=== PATIENT | male | born 1945 | race Two or more races ===

== ENCOUNTER 2023-02-08 23:21 | Inpatient (IN) | payer MEDICARE ==
[~2023-02-08] VITALS: Ht 170.2 cm; Wt 65.3 kg
[2023-02-09] VITALS (23 sets, daily range): BP systolic 97–147; BP diastolic 70–99; TEMP 98–98.7; O2SAT 98–100
[2023-02-09] MEDS ORDERED: ONDANSETRON HCL/PF 4 MG/2 ML VIAL IVP PRN (01:00)
[2023-02-09] MEDS ORDERED: MAG HYDROX/AL HYDROX/SIMETH 30 ML UDC PO PRN (01:00)
[2023-02-09] MEDS ORDERED: ACETAMINOPHEN 325 MG TABLET PO PRN ×2 (01:00→09:30)
[2023-02-09] MEDS ORDERED: MORPHINE SULFATE INJ 2 MG/ML DISP.SYRIN IV PRN (01:00)
[2023-02-09] MEDS ORDERED: Z GUARD REMEDY 4 OZ OINT TP PRN (01:00)
[2023-02-09] MEDS ORDERED: MAGNESIUM HYDROXIDE 30 ML UDC PO PRN (01:00)
[2023-02-09] MEDS ORDERED: ENOXAPARIN SODIUM 60 MG/0.6 ML DISP.SYRIN SQ ONE (03:30)
[2023-02-09 04:37] LABS: BASOPHILS % (AUTO) 0.2 % (0.0-2.0); EOSINOPHILS # (AUTO) 0.1 K/uL (0.0-0.7); EOSINOPHILS % (AUTO) 1.4 % (0.0-6.0); HEMATOCRIT 35 % (39-51); HEMOGLOBIN 11.4 g/dL (13.5-17.5); LYMPHOCYTES # (AUTO) 1.3 K/uL (0.8-4.8); LYMPHOCYTES % (AUTO) 16.9 % (20.0-44.0); MEAN CORPUSCULAR HEMOGLOBIN 28 PG (26.0-33.0); MEAN CORPUSCULAR HGB CONC 32 g/dl (31.0-36.0); MEAN CORPUSCULAR VOLUME 87 fL (80-96); MONOCYTES # (AUTO) 0.7 K/uL (0.1-1.30); MONOCYTES % (AUTO) 9.1 % (2.0-12.0); NEUTROPHILS # (AUTO) 5.6 K/uL (1.8-8.9); NEUTROPHILS % (AUTO) 72.4 % (43.0-81.0); PLATELET COUNT (AUTO) 191 K/uL (150-450); RED BLOOD CELL COUNT(AUTO) 4.05 MIL/uL (4.5-6.0); RED CELL DISTRIBUTION WIDTH 14.8 % (11.5-15.0); WHITE BLOOD COUNT (AUTO) 7.7 K/uL (4.3-11.0)
[2023-02-09 04:57] LABS: CALCIUM, SERUM 7.8 mg/dL (8.5-10.1); CARBON DIOXIDE 23 mmol/L (21-32); CHLORIDE 96 mmol/L (98-107); CREATININE 1.1 mg/dL (0.6-1.3); GLUCOSE 112 mg/dL (74-106); MAGNESIUM 1.8 mg/dL (1.8-2.4); PHOSPHORUS 3.9 mg/dL (2.5-4.9); POTASSIUM 3.9 mmol/L (3.5-5.1); SODIUM SERUM 129 mmol/L (136-145); UREA NITROGEN, BLOOD 26 mg/dL (7-18)
[2023-02-09] MEDS ORDERED: TRAZ-182 PO (08:12)
[2023-02-09] MEDS ORDERED: METO25TA4 PO (08:12)
[2023-02-09] MEDS ORDERED: CLOP75TA15 PO (08:12)
[2023-02-09] MEDS ORDERED: ASPI-1420 PO (08:12)
[2023-02-09] MEDS ORDERED: ERGO500093 PO (08:12)
[2023-02-09] MEDS ORDERED: SACU1TAB PO (08:12)
[2023-02-09] MEDS ORDERED: ACET-868 PO (08:12)
[2023-02-09] MEDS ORDERED: PANT20TA2 PO (08:12)
[2023-02-09] MEDS ORDERED: POLY17PO4 PO (08:12)
[2023-02-09] MEDS ORDERED: DORZ10DR11 EACHEYE (08:12)
[2023-02-09] MEDS: ENOXAPARIN SODIUM 60 MG/0.6 ML DISP.SYRIN SQ SCH ×3 (08:12→21:10)
[2023-02-09] MEDS ORDERED: SENN-261 PO (08:12)
[2023-02-09] MEDS ORDERED: ROSU20TA2 PO (08:12)
[2023-02-09] MEDS ORDERED: FUROSEMIDE 20 MG/2 ML VIAL IV SCH (09:00)
[2023-02-09] MEDS ORDERED: TRAZODONE 50 MG TABLET PO PRN (09:30)
[2023-02-09] MEDS ORDERED: SENNOSIDES 8.6 MG TABLET PO PRN (09:30)
[2023-02-09] MEDS: POTASSIUM CHLORIDE 20 MEQ TAB.PRT.SR PO SCH ×3 (10:11→12:48)
[2023-02-09] MEDS: FUROSEMIDE 40 MG/4 ML VIAL IV SCH ×3 (10:14→16:41)
[2023-02-09] MEDS: METOPROLOL SUCCINATE 25 MG TAB.SR.24H PO SCH (11:37)
[2023-02-09] MEDS: ASPIRIN EC 81 MG TABLET.DR PO SCH (11:38)
[2023-02-09] MEDS: CLOPIDOGREL BISULFATE 75 MG TABLET PO SCH (11:38)
[2023-02-09] MEDS: SACUBITRIL/VALSARTAN 1 EACH TABLET PO SCH (16:19)
[2023-02-09] MEDS: TIMOLOL 0.5% SOLN OPHTH 5 ML BOTTLE EACHEYE SCH (16:20)
[2023-02-09] MEDS: DORZOLAMIDE OPTH 2% 10 ML BOTTLE EACHEYE SCH (16:21)
[2023-02-09] MEDS: ATORVASTATIN 40 MG TABLET PO SCH (21:10)
[2023-02-10] VITALS (14 sets, daily range): BP systolic 98–140; BP diastolic 61–90; TEMP 97.9–98.4; O2SAT 96–100
[2023-02-10 04:20] LABS: BASOPHILS % (AUTO) 0.4 % (0.0-2.0); EOSINOPHILS # (AUTO) 0.2 K/uL (0.0-0.7); EOSINOPHILS % (AUTO) 3.4 % (0.0-6.0); HEMATOCRIT 35 % (39-51); HEMOGLOBIN 11.4 g/dL (13.5-17.5); LYMPHOCYTES # (AUTO) 1.1 K/uL (0.8-4.8); LYMPHOCYTES % (AUTO) 16.7 % (20.0-44.0); MEAN CORPUSCULAR HEMOGLOBIN 28 PG (26.0-33.0); MEAN CORPUSCULAR HGB CONC 33 g/dl (31.0-36.0); MEAN CORPUSCULAR VOLUME 87 fL (80-96); MONOCYTES # (AUTO) 0.8 K/uL (0.1-1.30); MONOCYTES % (AUTO) 11.4 % (2.0-12.0); NEUTROPHILS # (AUTO) 4.5 K/uL (1.8-8.9); NEUTROPHILS % (AUTO) 68.1 % (43.0-81.0); PLATELET COUNT (AUTO) 211 K/uL (150-450); RED BLOOD CELL COUNT(AUTO) 4.02 MIL/uL (4.5-6.0); RED CELL DISTRIBUTION WIDTH 14.6 % (11.5-15.0); WHITE BLOOD COUNT (AUTO) 6.6 K/uL (4.3-11.0)
[2023-02-10 04:28] LABS: CHOLESTEROL 124 mg/dL (<200); HDL CHOLESTEROL 48 mg/dL (40-60); LDL 66 mg/dL (0-99); TRIGLYCERIDES 75 mg/dL (30-150)
[2023-02-10 04:37] LABS: ALANINE AMINOTRANSFERASE 28 U/L (12-78); ALBUMIN 2.8 g/dL (3.4-5.0); ALKALINE PHOSPHATASE 68 U/L (46-116); ASPARTATE AMINOTRANSFERASE 56 U/L (15-37); CALCIUM, SERUM 8.5 mg/dL (8.5-10.1); CARBON DIOXIDE 23 mmol/L (21-32); CHLORIDE 98 mmol/L (98-107); CREATININE 1.1 mg/dL (0.6-1.3); GLUCOSE 95 mg/dL (74-106); MAGNESIUM 2.1 mg/dL (1.8-2.4); PHOSPHORUS 3.7 mg/dL (2.5-4.9); SODIUM SERUM 132 mmol/L (136-145); TOTAL PROTEIN, SERUM 6.3 g/dL (6.4-8.2); UREA NITROGEN, BLOOD 29 mg/dL (7-18)
[2023-02-10] MEDS: DORZOLAMIDE OPTH 2% 10 ML BOTTLE EACHEYE SCH ×2 (08:35→17:03)
[2023-02-10] MEDS: ASPIRIN EC 81 MG TABLET.DR PO SCH (08:35)
[2023-02-10] MEDS: TIMOLOL 0.5% SOLN OPHTH 5 ML BOTTLE EACHEYE SCH ×2 (08:35→17:04)
[2023-02-10] MEDS: CLOPIDOGREL BISULFATE 75 MG TABLET PO SCH (08:35)
[2023-02-10] MEDS: SACUBITRIL/VALSARTAN 1 EACH TABLET PO SCH ×2 (08:36→17:02)
[2023-02-10] MEDS: METOPROLOL SUCCINATE 25 MG TAB.SR.24H PO SCH (08:36)
[2023-02-10] MEDS: POTASSIUM CHLORIDE 20 MEQ TAB.PRT.SR PO SCH ×3 (09:37→12:17)
[2023-02-10] MEDS: FUROSEMIDE 40 MG/4 ML VIAL IV SCH ×3 (09:37→21:14)
[2023-02-10] MEDS: ENOXAPARIN SODIUM 60 MG/0.6 ML DISP.SYRIN SQ SCH (09:38)
[2023-02-10] MEDS: PANTOPRAZOLE 40 MG/PACK PACK PO SCH (10:33)
[2023-02-10] MEDS ORDERED: FUROSEMIDE 40 MG/4 ML VIAL ONE (21:11)
[2023-02-10] MEDS: ATORVASTATIN 40 MG TABLET PO SCH (21:14)
[2023-02-11] VITALS: BP 116/73; TEMP 97.7; O2SAT 95
[2023-02-11 04:00] VITALS: BP 119/83; TEMP 97.7; O2SAT 95
[2023-02-11 06:00] LABS: BASOPHILS % (AUTO) 0.4 % (0.0-2.0); EOSINOPHILS # (AUTO) 0.2 K/uL (0.0-0.7); EOSINOPHILS % (AUTO) 2.8 % (0.0-6.0); HEMATOCRIT 36 % (39-51); HEMOGLOBIN 11.9 g/dL (13.5-17.5); LYMPHOCYTES # (AUTO) 1.4 K/uL (0.8-4.8); LYMPHOCYTES % (AUTO) 19.5 % (20.0-44.0); MEAN CORPUSCULAR HEMOGLOBIN 29 PG (26.0-33.0); MEAN CORPUSCULAR HGB CONC 33 g/dl (31.0-36.0); MEAN CORPUSCULAR VOLUME 87 fL (80-96); MONOCYTES # (AUTO) 0.8 K/uL (0.1-1.30); MONOCYTES % (AUTO) 10.5 % (2.0-12.0); NEUTROPHILS # (AUTO) 4.8 K/uL (1.8-8.9); NEUTROPHILS % (AUTO) 66.8 % (43.0-81.0); PLATELET COUNT (AUTO) 238 K/uL (150-450); RED BLOOD CELL COUNT(AUTO) 4.14 MIL/uL (4.5-6.0); RED CELL DISTRIBUTION WIDTH 14.8 % (11.5-15.0); WHITE BLOOD COUNT (AUTO) 7.2 K/uL (4.3-11.0)
[2023-02-11 06:15] LABS: ALANINE AMINOTRANSFERASE 25 U/L (12-78); ALBUMIN 2.8 g/dL (3.4-5.0); ALKALINE PHOSPHATASE 70 U/L (46-116); ASPARTATE AMINOTRANSFERASE 33 U/L (15-37); BILIRUBIN,TOTAL 0.7 mg/dL (0.2-1.0); CALCIUM, SERUM 8.7 mg/dL (8.5-10.1); CARBON DIOXIDE 28 mmol/L (21-32); CHLORIDE 95 mmol/L (98-107); CREATININE 1.2 mg/dL (0.6-1.3); GLUCOSE 105 mg/dL (74-106); MAGNESIUM 1.8 mg/dL (1.8-2.4); PHOSPHORUS 4.2 mg/dL (2.5-4.9); POTASSIUM 3.8 mmol/L (3.5-5.1); SODIUM SERUM 133 mmol/L (136-145); TOTAL PROTEIN, SERUM 6.3 g/dL (6.4-8.2); UREA NITROGEN, BLOOD 32 mg/dL (7-18)
[2023-02-11 08:00] VITALS: BP 126/74; TEMP 97.7; O2SAT 100
[2023-02-11] MEDS: SACUBITRIL/VALSARTAN 1 EACH TABLET PO SCH ×2 (09:00→16:37)
[2023-02-11] MEDS ORDERED: SPIRONOLACTONE 25 MG TABLET PO SCH (09:00)
[2023-02-11] MEDS: DORZOLAMIDE OPTH 2% 10 ML BOTTLE EACHEYE SCH ×4 (09:00→16:45)
[2023-02-11] MEDS: TIMOLOL 0.5% SOLN OPHTH 5 ML BOTTLE EACHEYE SCH ×2 (09:01→16:37)
[2023-02-11] MEDS: PANTOPRAZOLE 40 MG/PACK PACK PO SCH (09:02)
[2023-02-11] MEDS: CLOPIDOGREL BISULFATE 75 MG TABLET PO SCH (09:02)
[2023-02-11] MEDS: METOPROLOL SUCCINATE 25 MG TAB.SR.24H PO SCH (09:02)
[2023-02-11] MEDS: ASPIRIN EC 81 MG TABLET.DR PO SCH (09:02)
[2023-02-11 16:00] VITALS: BP 126/72; TEMP 98.2; O2SAT 99
[2023-02-11 20:49] VITALS: BP 129/87; TEMP 97.3; O2SAT 99
[2023-02-11] MEDS: ATORVASTATIN 40 MG TABLET PO SCH (22:58)
== END 2023-02-12 00:15 | disposition short-term general hospital (02) | DRG 280 ==
LOC: ICU 23:57 → TELE 02-10 13:26
PROVIDERS: ADMIT Nurse Practitioner Acute Care
DX: I21.4 Non-ST elevation (NSTEMI) myocardial infarction (principal); I50.33 Acute on chronic diastolic (congestive) heart failure; J96.01 Acute respiratory failure with hypoxia; E87.1 Hypo-osmolality and hyponatremia; E44.0 Moderate protein-calorie malnutrition; I11.0 Hypertensive heart disease with heart failure; E78.5 Hyperlipidemia, unspecified; D64.9 Anemia, unspecified; E88.09 Other disorders of plasma-protein metabolism, not elsewhere classified; I25.10 Atherosclerotic heart disease of native coronary artery without angina pectoris; K21.9 Gastro-esophageal reflux disease without esophagitis; Z66 Do not resuscitate; Z95.1 Presence of aortocoronary bypass graft; Z95.5 Presence of coronary angioplasty implant and graft; Z20.822 Contact with and (suspected) exposure to COVID-19; Z68.22 Body mass index [BMI] 22.0-22.9, adult; S30.1XXA Contusion of abdominal wall, initial encounter; X58.XXXA Exposure to other specified factors, initial encounter; Y93.9 Activity, unspecified; Y92.89 Other specified places as the place of occurrence of the external cause; H54.7 Unspecified visual loss
CPT/HCPCS: 36415; 71045-TC; 76882; 80048-TC; 80053-TC; 80061-TC; 82962-TC; 83735-TC; 84100-TC; 84484-TC; 85025-TC; 87081-TC; 93307-TC; G0378; J1650; J1940